=== PATIENT | female | born 1985 | race Caucasian/White ===

== ENCOUNTER 2018-06-19 00:50 | Emergency (ER) | payer BC ==
[~2018-06-19] VITALS: Ht 160 cm; Wt 85.7 kg
[~2018-06-19 00:50] MED LIST: PRENAT PO
[2018-06-19 01:15] VITALS: BP 125/79; Ht 160 cm; Wt 85.7 kg
[2018-06-19] MEDS ORDERED: IBUP800T48 PO (01:38)
[2018-06-19] MEDS ORDERED: MED4DP PO (01:38)
[2018-06-19] MEDS ORDERED: DEXAMETHASONE 10 MG/ML 1 ML INJ PO ONE (02:00)
[2018-06-19] MEDS ORDERED: DEXAMETHASONE 10 MG/ML 1 ML INJ IM ONE (02:00)
[2018-06-19 02:14] VITALS: PULSE 88; RESP 20
--- NOTE | 2018-06-19 02:40 | ERD ---
ER Documentation Chief Complaint Chief Complaint tingling/weird sensation on her L hand&arm after twisting to open a bottle HPI 32-year-old female presenting with sensation to the left hand causing numbness. She states this started this evening. Patient had a baby 4 months ago. She has had neck pain ever since. Has not taken any medications for her symptoms. Denies any weakness. Denies medical problems. NKDA. Surgical history denies. Social history denies ROS All systems reviewed and are negative except as per history of present illness. Medications Home Meds Active Scripts Ibuprofen* (Motrin*) 800 Mg Tab, 800 MG PO Q6, #30 TAB Prov:VENKATA COLEY PA-C 06/19/18 Methylprednisolone* (Medrol* DOSE PACK) 4 Mg/Dose-Pack Tab.ds.pk, 4 MG PO . DIRECTED, #1 PACKET Prov:VENKATA COLEY PA-C 06/19/18 Reported Medications Multivit/Min/Fol Ac/Iron/Pren* ( S*) 1 Tab Tab, 1 TAB PO DAILY, TAB 08/31/14 Allergies Allergies: Coded Allergies: No Known Allergy (Unverified , 08/31/14) PMhx/Soc Medical and Surgical Hx: pt denies Medical Hx, pt denies Surgical Hx History of Surgery: No Anesthesia Reaction: No Hx Neurological Disorder: No Hx Respiratory Disorders: No Hx Cardiac Disorders: No Hx Psychiatric Problems: No Hx Miscellaneous Medical Probl: No Hx Alcohol Use: No Hx Substance Use: No Hx Tobacco Use: No Smoking Status: Never smoker FmHx Family History: No diabetes, No coronary disease, No other Physical Exam Vitals Vital Signs Date Temp Pulse Resp B/P (MAP) Pulse Ox O2 O2 Flow FiO2 Time Delivery Rate 06/19/18 98.2 88 20 100 Room Air 02:14 06/19/18 97.9 75 18 125/79 99 01:15 (94) Physical Exam GENERAL: The patient is well-appearing, well-nourished, in no acute distress CHEST: Clear to auscultation bilaterally. There are no rales, wheezes or rhonchi. HEART: Regular rate and rhythm. No murmurs, clicks, rubs or gallops. No S3 or S4. EXTREMITIES: Equal pulses bilaterally. There is no peripheral clubbing, cyanosis or edema. No focal swelling or erythema. Full range of motion. Grossly neurovascularly intact. NEUROLOGIC: Alert and oriented. Cranial nerves II through XII intact. Motor strength in all 4 extremities with 5 out of 5 strength. Sensation grossly intact. Normal speech and gait. SKIN: There is no apparent rash or petechiae. The skin is warm and dry. Results 24 hrs Current Medications Medications Dose Sig/Rose Start Time Status Last (Trade) Ordered Route PRN Stop Time Admin Dose Reason Admin 10 mg ONCE ONCE 06/19/18 DC Dexamethasone IM 02:00 06/19/18 (Decadron) 02:00 10 mg ONCE ONCE 06/19/18 DC 06/19/18 Dexamethasone PO 02:00 06/19/18 01:48 (Decadron) 02:01 Procedures/MDM ER course: Decadron given in the ED. Ibuprofen given ED. MDM: 32-year-old female presenting with neck pain and paresthesias. I have low suspicion for cardiac or pulmonary emergency. I have low suspicion for neuro deficit. Patient had normal strength to extremity and was neurovascular intact on exam. I have low suspicion for vascular abnormality. Patient is discharged stricter precautions and told to follow-up with primary care within 1-2 days for close evaluation. Patient is told if symptoms change or worsen to immediately return to the ER. All questions answered at discharge Departure Diagnosis: Primary Impression: Arm paresthesia, left Condition: Stable Patient Instructions: Paraesthesias Referrals: [facility] YOU HAVE RECEIVED A MEDICAL SCREENING EXAM AND THE RESULTS INDICATE THAT YOU DO NOT HAVE A CONDITION THAT REQUIRES URGENT TREATMENT IN THE EMERGENCY DEPARTMENT. FURTHER EVALUATION AND TREATMENT OF YOUR CONDITION CAN WAIT UNTIL YOU ARE SEEN IN YOUR DOCTORS OFFICE WITHIN THE NEXT 1-2 DAYS. IT IS YOUR RESPONSIBILITY TO MAKE AN APPOINTMENT FOR FOLOW-UP CARE. IF YOU HAVE A PRIMARY DOCTOR --you should call your primary doctor and schedule an appointment IF YOU DO NOT HAVE A PRIMARY DOCTOR YOU CAN CALL OUR PHYSICIAN REFERRAL HOTLINE AT IF YOU CAN NOT AFFORD TO SEE A PHYSICIAN YOU CAN CHOSE FROM THE FOLLOWING [facility] [address] [facility] [address] [facility] [place] [address] [facility] [address] [facility]. [facility] [address] [facility]. [facility]. [address] Additional Instructions: FOLLOW UP WITH YOUR PRIMARY CARE PHYSICIAN TOMORROW.Return to this facility if you are not improving as expected. VENKATA COLEY PA-C Jun 19, 2018 02:40
== END 2018-06-19 02:05 | disposition home or self-care (01) ==
LOC: FTE 00:50
DX: R20.2 Paresthesia of skin (principal)
CPT/HCPCS: J1100; Z7502; 99283